=== PATIENT | male | born 1990 | race Caucasian/White ===

== ENCOUNTER 2022-02-11 16:13 | Emergency (ER) | payer SELFPAY ==
[2022-02-11 16:29] VITALS: BP 118/83; PULSE 50; RESP 15; TEMP 36.4; O2SAT 99; BMI 37.8
[2022-02-11] MEDS: sodium chloride 0.9% 1,000 ML 999 ML IV ×2 (16:52→17:20)
[2022-02-11] MEDS: ondansetron 2 mg/ML SDV 2 mL 4 MG IVP (16:53)
[2022-02-11 16:57] LABS: Basophils % 0.1 %; Hematocrit 42.4 % (42.0-52.0); Hemoglobin 14.4 g/dL (11.7-16.6); Lymphocytes # 0.5 10^3/uL (0.8-4.8); Lymphocytes % 3.4 %; Mean Corpuscular Hemoglobin 31.2 pg (28.0-34.0); Mean Corpuscular Volume 91.8 fl (80-94); Monocytes # 0.3 10^3/uL (0.2-0.9); Monocytes % 2.3 %; Neutrophils # 12.58 10^3/uL (1.8-7.7); Neutrophils % 93.8 %; Nucleated Red Blood Cells % 0 %; Platelet Count 288 10^3/cmm (130-400); Red Blood Count 4.62 10^6/uL (4.1-5.3); Red Cell Distribution Width 12.2 % (12.1-15.1); White Blood Count 13.4 10^3/uL (4.0-10.0)
[2022-02-11 17:00] VITALS: BP 113/71; PULSE 38; RESP 15; O2SAT 97
--- NOTE | 2022-02-11 17:06 | ED_ITS ---
Documented by User: Dimitri Guadarrama DO 02/12/22 06:18 HPI - Nausea/Vomiting/Diarrhea General: Chief complaint: Nausea/Vomiting/Diarrhea Stated complaint: n/v/abd pain Time Seen by Provider: 02/11/22 16:31 History of Present Illness: 31-year-old male presents emergency room with complaint of nausea vomiting abdominal pain, symptoms began this morning around 4 AM no hematochezia melena hematemesis coffee-ground emesis. No fever sweats or chills he was seen earlier today at another emergency room CT showed colitis. She was given a GI cocktail and discharged home. Continues to have nausea or vomiting. He denies any dysuria urgency or frequency. MD elicited complaint: nausea and vomiting Onset (ago): hour(s) Description of vomiting: watery and bilious Associated nausea: Yes Associated abdominal pain: Yes Location of pain: Diffuse Pain consistency: constant Severity: moderate Quality: aching Exacerbating factors: none Relieving factors: none Associated symtoms: Reports anorexia, malaise, nausea and weakness; Denies altered mental status, anxiety, bloating, change in vision, chest pain, cough, diaphoresis, decreased urine output, dizziness, dysuria, epistaxis, fatigue, fecal incontinence, fevers/chills, headache(s), myalgias, numbness, palpitations, rash, short of breath, syncope, tenesmus or tinnitus Review of Systems Const: Reports: malaise; Denies: fever(s), chills, fatigue or diaphoresis Eyes: Denies: change in vision ENMT: Denies: tinnitus or epistaxis Card: Denies: chest pain, palpitations or syncope Resp: Denies: dyspnea, productive cough or non-productive cough GI: Reports: abdominal pain, nausea and vomiting; Denies: diarrhea, bloating or fecal incontinence : Denies: flank pain, difficulty urinating, dysuria, urinary frequency or urinary urgency Skin/Breast: Denies: rash or pruritus Neuro: Denies: headache(s) or dizziness Psych: Denies: anxiety Physical Exam Const: EXAM LIMITATIONS: no altered mental status GENERAL APPEARANCE: cooperative and comfortable ORIENTATION/CONSCIOUSNESS: Yes awake, Yes oriented to person, Yes oriented to place and Yes oriented to time HENMT: COMMON NORMALS: normocephalic, atraumatic and hearing grossly normal bilaterally HEAD & SCALP: normocephalic and atraumatic Resp: COMMON NORMALS: normal respiratory effort, No retractions, No use of accessory muscles and clear to auscultation bilaterally AUSCULTATION: clear to auscultation bilaterally Cardio: COMMON NORMALS: regular rate, regular rhythm and No murmurs present (Cardio) RATE: regular rate RHYTHM: regular rhythm GI: COMMON NORMALS: No hepatosplenomegaly present AUSCULTATION: Yes normoactive bowel sounds PALPATION: Yes Tenderness to palpation present (GI) (Diffuse), No Guarding due to palpation present (GI) and Yes No hepatosplenomegaly present Extremity: COMMON NORMALS: normal to inspection, capillary refill normal, no clubbing, cyanosis or edema, no calf tenderness and no pedal edema Neuro: SENSORIUM/ORIENTATION: Yes oriented to person, Yes oriented to place and Yes oriented to time Skin: COMMON NORMALS: no rashes or lesions noted GENERAL SKIN EXAM: no rashes or lesions noted Course Vital Signs: Vital signs: Vital Signs Temperature 97.5 F L 02/11/22 16:29 Pulse Rate 42 L 02/11/22 18:51 Respiratory Rate 11 L 02/11/22 18:51 Blood Pressure 130/80 02/11/22 18:51 Pulse Oximetry 97 02/11/22 18:51 Oxygen Delivery Me thod 02/11/22 16:29 MDM - Nausea/Vomiting/Diarrhea Medical Decision Making Care signed out to Dr. Banuelos at change of shift. See final notes for diagnosis and disposition. Awaiting CT abdomen Patient presents with vomiting diarrhea likely viral in origin I did speak to [facility] his CT that showed enteritis his blood work here is normal he feels improved after fluids will prescribe him Reglan he is to follow-up with his PCP and return if worsening he understands agrees to plan. Medical Records I reviewed the patient's medical records. Lab Data I reviewed the patient's lab results. : 02/11/22 16:50 02/11/22 16:50 Laboratory Results WBC 13.4 10^3/uL (4.0-10.0) H 02/11/22 16:50 RBC 4.62 10^6/uL (4.1-5.3) 02/11/22 16:50 Hgb 14.4 g/dL (11.7-16.6) 02/11/22 16:50 Hct 42.4 % (42.0-52.0) 02/11/22 16:50 MCV 91.8 fl (80-94) 02/11/22 16:50 MCH 31.2 pg (28.0-34.0) 02/11/22 16:50 MCHC 34.0 g/dL (30.0-36.0) 02/11/22 16:50 RDW 12.2 % (12.1-15.1) 02/11/22 16:50 Plt Count 288 10^3/cmm (130-400) 02/11/22 16:50 MPV 10.0 fL (7.4-10.4) 02/11/22 16:50 Neut % (Auto) 93.8 % 02/11/22 16:50 Lymph % (Auto) 3.4 % 02/11/22 16:50 [place] % (Auto) 2.3 % 02/11/22 16:50 Eos % (Auto) 0.0 % 02/11/22 16:50 Baso % (Auto) 0.1 % 02/11/22 16:50 Neut # (Auto) 12.58 10^3/uL (1.8-7.7) H 02/11/22 16:50 Lymph # (Auto) 0.5 10^3/uL (0.8-4.8) L 02/11/22 16:50 [place] # (Auto) 0.3 10^3/uL (0.2-0.9) 02/11/22 16:50 Eos # (Auto) 0.0 10^3/uL (0.0-0.8) 02/11/22 16:50 Baso # (Auto) 0.0 10^3/uL (0.0-0.1) 02/11/22 16:50 Nucleated RBC % (auto) 0 % 02/11/22 16:50 Nucleated RBCs # 0.0 /100WBC 02/11/22 16:50 Sodium 137 mmol/L (136-145) 02/11/22 16:50 Potassium 4.0 mmol/L (3.5-5.1) 02/11/22 16:50 Chloride 100 mmol/L (98-107) 02/11/22 16:50 Carbon Dioxide 21 mmol/L (22-29) L 02/11/22 16:50 Anion Gap 20.0 (5-19) H 02/11/22 16:50 BUN 13 mg/dL (6-20) 02/11/22 16:50 Creatinine 0.8 mg/dL (0.7-1.2) 02/11/22 16:50 GFR Calculation 113.5 mL/min (90-130) 02/11/22 16:50 Glucose 111 mg/dL (65-115) 02/11/22 16:50 Calculated Osmolality 285 mOsm/kg (285-295) 02/11/22 16:50 Calcium 9.1 mg/dL (8.5-10.5) 02/11/22 16:50 Total Bilirubin 1.1 mg/dL (0.15-1.2) 02/11/22 16:50 AST 16 U/L (0-40) 02/11/22 16:50 ALT 19 U/L (0-41) 02/11/22 16:50 Alkaline Phosphatase 89 U/L (40-130) 02/11/22 16:50 Total Protein 7.3 g/dL (6.6-8.7) 02/11/22 16:50 Albumin 4.7 g/dL (3.5-5.2) 02/11/22 16:50 Globulin 2.6 g/dL (1.3-4.6) 02/11/22 16:50 Lipase 22 U/L (13-60) 02/11/22 16:50 Discharge Plan Discharge Patient Disposition: Home Clinical Impression: Vomiting Condition: Stable Prescriptions: New Reglan 10 mg tablet 10 mg PO Q6H PRN (Reason: nausea and vomiting) Qty: 20 0RF No Action Compazine 5 mg Tablet 5 mg PO TID PRN (Reason: Nausea And Vomiting) Advil 200 mg Tablet 800 mg PO Q12H PRN (Reason: Pain) Discharge Orders: Discharge ED (Routine); Ordered 02/11/22 Ordered By: Tressa Banuelos Discharge Diet: Advance as tolerated Discharge Activity: Resume usual activity Patient Instructions: Acute Nausea and Vomiting (ED) Coding Level of Care Code ED Project Management Specialist for Chg Fwd Exam Detailed Documented by User: Tressa Banuelos MD 02/11/22 18:49 HPI - Nausea/Vomiting/Diarrhea General: Chief complaint: Nausea/Vomiting/Diarrhea Stated complaint: n/v/abd pain Time Seen by Provider: 02/11/22 16:31 Course Vital Signs: Vital signs: Vital Signs Temperature 97.5 F L 02/11/22 16:29 Pulse Rate 42 L 02/11/22 18:51 Respiratory Rate 11 L 02/11/22 18:51 Blood Pressure 130/80 02/11/22 18:51 Pulse Oximetry 97 02/11/22 18:51 Oxygen Delivery Me thod 02/11/22 16:29 MDM - Nausea/Vomiting/Diarrhea Medical Decision Making Patient presents with vomiting diarrhea likely viral in origin I did speak to [facility] his CT that showed enteritis his blood work here is normal he feels improved after fluids will prescribe him Reglan he is to follow-up with his PCP and return if worsening he understands agrees to plan. Lab Data : 02/11/22 16:50 02/11/22 16:50 Laboratory Results WBC 13.4 10^3/uL (4.0-10.0) H 02/11/22 16:50 RBC 4.62 10^6/uL (4.1-5.3) 02/11/22 16:50 Hgb 14.4 g/dL (11.7-16.6) 02/11/22 16:50 Hct 42.4 % (42.0-52.0) 02/11/22 16:50 MCV 91.8 fl (80-94) 02/11/22 16:50 MCH 31.2 pg (28.0-34.0) 02/11/22 16:50 MCHC 34.0 g/dL (30.0-36.0) 02/11/22 16:50 RDW 12.2 % (12.1-15.1) 02/11/22 16:50 Plt Count 288 10^3/cmm (130-400) 02/11/22 16:50 MPV 10.0 fL (7.4-10.4) 02/11/22 16:50 Neut % (Auto) 93.8 % 02/11/22 16:50 Lymph % (Auto) 3.4 % 02/11/22 16:50 [place] % (Auto) 2.3 % 02/11/22 16:50 Eos % (Auto) 0.0 % 02/11/22 16:50 Baso % (Auto) 0.1 % 02/11/22 16:50 Neut # (Auto) 12.58 10^3/uL (1.8-7.7) H 02/11/22 16:50 Lymph # (Auto) 0.5 10^3/uL (0.8-4.8) L 02/11/22 16:50 [place] # (Auto) 0.3 10^3/uL (0.2-0.9) 02/11/22 16:50 Eos # (Auto) 0.0 10^3/uL (0.0-0.8) 02/11/22 16:50 Baso # (Auto) 0.0 10^3/uL (0.0-0.1) 02/11/22 16:50 Nucleated RBC % (auto) 0 % 02/11/22 16:50 Nucleated RBCs # 0.0 /100WBC 02/11/22 16:50 Sodium 137 mmol/L (136-145) 02/11/22 16:50 Potassium 4.0 mmol/L (3.5-5.1) 02/11/22 16:50 Chloride 100 mmol/L (98-107) 02/11/22 16:50 Carbon Dioxide 21 mmol/L (22-29) L 02/11/22 16:50 Anion Gap 20.0 (5-19) H 02/11/22 16:50 BUN 13 mg/dL (6-20) 02/11/22 16:50 Creatinine 0.8 mg/dL (0.7-1.2) 02/11/22 16:50 GFR Calculation 113.5 mL/min (90-130) 02/11/22 16:50 Glucose 111 mg/dL (65-115) 02/11/22 16:50 Calculated Osmolality 285 mOsm/kg (285-295) 02/11/22 16:50 Calcium 9.1 mg/dL (8.5-10.5) 02/11/22 16:50 Total Bilirubin 1.1 mg/dL (0.15-1.2) 02/11/22 16:50 AST 16 U/L (0-40) 02/11/22 16:50 ALT 19 U/L (0-41) 02/11/22 16:50 Alkaline Phosphatase 89 U/L (40-130) 02/11/22 16:50 Total Protein 7.3 g/dL (6.6-8.7) 02/11/22 16:50 Albumin 4.7 g/dL (3.5-5.2) 02/11/22 16:50 Globulin 2.6 g/dL (1.3-4.6) 02/11/22 16:50 Lipase 22 U/L (13-60) 02/11/22 16:50 Discharge Plan Discharge Patient Disposition: Home Clinical Impression: Vomiting Condition: Stable Prescriptions: New Reglan 10 mg tablet 10 mg PO Q6H PRN (Reason: nausea and vomiting) Qty: 20 0RF No Action Compazine 5 mg Tablet 5 mg PO TID PRN (Reason: Nausea And Vomiting) Advil 200 mg Tablet 800 mg PO Q12H PRN (Reason: Pain) Discharge Orders: Discharge ED (Routine); Ordered 02/11/22 Ordered By: Tressa Banuelos Discharge Diet: Advance as tolerated Discharge Activity: Resume usual activity Patient Instructions: Acute Nausea and Vomiting (ED) Coding Level of Care Code ED Project Management Specialist for [place] Fwd Exam Detailed
--- NOTE | 2022-02-11 17:12 | ECG_ITS ---
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 Measurements Intervals [place] Rate: 41 P: 73 NM: 219 QRS: 87 QRSD: 89 T: 73 QT: 495 QTc: 410 Interpretive Statements SINUS BRADYCARDIA WITH FIRST DEGREE AV BLOCK POSSIBLE RIGHT VENTRICULAR CONDUCTION DELAY [RSR (QR) IN V1/V2] No previous ECG available for comparison Electronically Signed On 02-12-2022 8:52:29 CDT by José Miguel Cuellar M.D. [email or web address]
[2022-02-11 17:14] LABS: Alanine Aminotransferase 19 U/L (0-41); Albumin Level 4.7 g/dL (3.5-5.2); Alkaline Phosphatase 89 U/L (40-130); Aspartate Amino Transferase 16 U/L (0-40); Blood Urea Nitrogen 13 mg/dL (6-20); Calcium 9.1 mg/dL (8.5-10.5); Carbon Dioxide 21 mmol/L (22-29); Chloride 100 mmol/L (98-107); Globulin 2.6 g/dL (1.3-4.6); Glomerular Filtration Rate 113.5 mL/min (90-130); Glucose 111 mg/dL (65-115); Lipase 22 U/L (13-60); Osmolality Calculated 285 mOsm/kg (285-295); Sodium 137 mmol/L (136-145); Total Bilirubin 1.1 mg/dL (0.15-1.2); Total Protein 7.3 g/dL (6.6-8.7)
--- NOTE | 2022-02-11 17:16 | PC.NURSE ---
PT PLACED ON CONTINUOUS SPO2, NIBP, AND CM.
[2022-02-11] MEDS: promethazine 25 mg/mL SDV 1 mL IM (17:20)
[2022-02-11 18:51] VITALS: BP 130/80; PULSE 42; RESP 11; O2SAT 97
== END 2022-02-11 18:54 | disposition home or self-care (01) ==
PROVIDERS: Nurse Practitioner Family; Emergency Provider Emergency Medicine
DX: R11.11 Vomiting without nausea (principal)
CPT/HCPCS: 80053; 83690; 85025; 93005; 96372; 96374; 99285; J2405; J2550; J7030